=== PATIENT | female | born 1940 | race Two or more races ===

== ENCOUNTER 2022-09-18 22:42 | Inpatient (IN) | payer OTHER ==
[~2022-09-18] VITALS: Ht 154.9 cm; Wt 54.4 kg
[2022-09-18] MEDS ORDERED: ATORVASTATIN CA10 MG (22:48)
[2022-09-18] MEDS ORDERED: COZAAR25 MG (22:48)
[2022-09-18] MEDS ORDERED: DILTIAZEM 24HR180 MG (22:48)
[2022-09-18] MEDS ORDERED: METFORMIN HCL500 MG (22:48)
[2022-09-18] MEDS ORDERED: MONTELUKAST SODI4 M1 (22:49)
[2022-09-18] MEDS ORDERED: ARICEPT5 MG (22:49)
[2022-09-18] MEDS ORDERED: QUETIAPINE FUMA25 MG (22:49)
[2022-09-18] MEDS ORDERED: XHANCE16 ML (22:50)
--- NOTE | 2022-09-18 22:51 | NUR ---
SE RECIBE PTE ALERTA Y RECIBIDA EN AMBULANCIA PROVENIENTE DEL HOME POR FIEBRE Y TOS,SE OBSERVA OSCAR RT CON SECRESIONES.
--- NOTE | 2022-09-19 00:13 | NUR ---
SE REALIZAN TODAS LAS ORDENES MEDICAS BAJO MEDIDAS ASEPTICAS EN ROBIN TOTALIDAD, PACIENTE PENDIENTE A RESULTADOS DE LABORATORIO Y RE EVALUACION MEDICA.
--- NOTE | 2022-09-19 07:44 | NUR ---
SE RECIBE PTE ALERTA Y ORIENTADO POR 3 EN LÁZARO CON BARANDAS ELEVADA Y TIMBRE ACCESIBLE, SE OBSERVA VENOPUNCION PATNETE Y TAE DE EDEMA PTE NO PRESENTA DOLOR AL MOMENTO, PTE EN ESPERA DEL DR Teresa.LIAO PTE SE MANTIENE EN OBSERVCION Y BAJO TRATAMIENTO.
[2022-09-20] MEDS ORDERED: LEVOTHYROXINE75 MCG (13:59)
[2022-09-20] MEDS ORDERED: IPRATROPIU0.2 MG/1 M (13:59)
[2022-09-20] MEDS ORDERED: VITAMIN D325 MC2 (13:59)
[2022-09-20] MEDS ORDERED: VITAMIN B-121000 MCG (14:00)
[2022-09-20] MEDS ORDERED: METFORMIN HCL1000 M3 (14:00)
[2022-09-26] MEDS ORDERED: LEVOFLOXACIN750 MG PO (18:52)
== END 2022-09-26 23:05 | disposition home or self-care (01) | DRG 689 ==
LOC: ER 22:42 → MEDJ 09-19 10:07 → SEC-K 09-19 12:02 → MEDJ 09-19 18:26
PROVIDERS: ADMIT Internal Medicine; ATTEND Internal Medicine
PROC: 4A12X4Z Monitoring of Cardiac Electrical Activity, External Approach (ICD-10-PCS; principal; 2022-09-19)
PROC: B24BYZZ Ultrasonography of Heart with Aorta using Other Contrast (ICD-10-PCS; 2022-09-20)
PROC: BW24ZZZ Computerized Tomography (CT Scan) of Chest and Abdomen (ICD-10-PCS; 2022-09-20)
DX: N39.0 Urinary tract infection, site not specified (principal); J69.0 Pneumonitis due to inhalation of food and vomit; B95.2 Enterococcus as the cause of diseases classified elsewhere; I10 Essential (primary) hypertension; H10.9 Unspecified conjunctivitis; E11.8 Type 2 diabetes mellitus with unspecified complications; M06.9 Rheumatoid arthritis, unspecified; E78.5 Hyperlipidemia, unspecified; G30.9 Alzheimer's disease, unspecified; F02.80 Dementia in other diseases classified elsewhere, unspecified severity, without behavioral disturbance, psychotic disturbance, mood disturbance, and anxiety; Z79.84 Long term (current) use of oral hypoglycemic drugs